=== PATIENT | male | born 1980 | race Two or more races ===

== ENCOUNTER 2023-04-04 08:27 | Inpatient (IN) | payer OTHER ==
[2023-04-05] MEDS ORDERED: IRBESARTAN-HCT1 EACH PO (10:32)
[2023-04-05 10:40] LABS: HEMATOCRIT 42.2 % (39.0-48.0); HEMOGLOBIN 13.8 g/dL (13-16.00); MEAN CELL VOLUME 93.2 fL (80.0-100.00); MEAN CORPUSCULAR HEMOGLOBIN 30.4 pg (27.00-32.0); MEAN CORPUSCULAR HGB CONC 32.7 g/dl (32.0-36.0); PLATELET COUNT 322 K/uL (150-450); RED BLOOD COUNT 4.53 M/uL (4.00-6.00); RED CELL DISTRIBUTION WIDTH 12.8 % (11.5-14.5)
[2023-04-05 11:18] LABS: CALCIUM 9.2 mg/dL (8.5-10.1); CREATININE SERUM 0.79 mg/dL (0.70-1.30); GFR 108.09; POTASSIUM 4.57 mEq/L (3.5-5.1)
[2023-04-05 11:43] LABS: INR 1.01; PARTIAL THROMBOPLASTIN TIME 27.9 SECONDS (22.0-34.0); PROTHROMBIN TIME 10.6 SECONDS (9.0-11.5)
[2023-04-07] MEDS ORDERED: KETO10TA2 PO (14:55)
[2023-04-07] MEDS ORDERED: NEURONTIN300 MG PO (14:55)
[2023-04-07] MEDS ORDERED: TRAMADOL HCL50 MG PO (14:55)
[2023-04-07] MEDS ORDERED: TYLENOL ARTHRI650 MG PO (14:55)
[2023-04-08 06:30] LABS: HEMATOCRIT 39.8 % (39.0-48.0); HEMOGLOBIN 13.1 g/dL (13-16.00); MEAN CORPUSCULAR HEMOGLOBIN 30.7 pg (27.00-32.0); PLATELET COUNT 294 K/uL (150-450); RED BLOOD COUNT 4.28 M/uL (4.00-6.00); RED CELL DISTRIBUTION WIDTH 12.9 % (11.5-14.5)
[2023-04-08 06:56] LABS: ALBUMIN 3.4 gm/dL (3.4-5.0); BILIRUBIN TOTAL 0.86 mg/dL (0.3-1.2); CALCIUM 8.9 mg/dL (8.5-10.1); CREATININE SERUM 0.99 mg/dL (0.70-1.30); GFR 83.3; GLOBULINA 3.2 G/DL (2.4-3.5); POTASSIUM 4.42 mEq/L (3.5-5.1); TOTAL PROTEIN 6.6 gm/dL (6.4-8.2)
== END 2023-04-08 18:09 | disposition home or self-care (01) | DRG 355 ==
LOC: SURH 04-07 08:45 → O/R 04-07 09:26 → SURH 04-07 13:15 → SURG 04-07 16:30
PROVIDERS: Internal Medicine; ADMIT Surgery; ATTEND Surgery
PROC: 0WJF4ZZ Inspection of Abdominal Wall, Percutaneous Endoscopic Approach (ICD-10-PCS; 2023-04-07)
PROC: 0KXL0ZZ Transfer Left Abdomen Muscle, Open Approach (ICD-10-PCS; 2023-04-07)
PROC: 0KXK0ZZ Transfer Right Abdomen Muscle, Open Approach (ICD-10-PCS; 2023-04-07)
PROC: 0HB7XZZ Excision of Abdomen Skin, External Approach (ICD-10-PCS; 2023-04-07)
PROC: 0WUF0JZ Supplement Abdominal Wall with Synthetic Substitute, Open Approach (ICD-10-PCS; principal; 2023-04-07 13:15)
DX: K43.2 Incisional hernia without obstruction or gangrene (principal); Z20.822 Contact with and (suspected) exposure to COVID-19

== ENCOUNTER 2023-04-18 20:51 | Inpatient (IN) | payer OTHER ==
[~2023-04-18] VITALS: Ht 180.3 cm; Wt 113.4 kg
[~2023-04-18 20:51] MED LIST: IRBESARTAN-HCT1 EACH PO; KETO10TA2 PO; NEURONTIN300 MG PO; TRAMADOL HCL50 MG PO; TYLENOL ARTHRI650 MG PO
[2023-04-18 23:10] LABS: ABG pCO2 31.4 mmHg (35-45)
[2023-04-18 23:11] LABS: ABG PO2 57.6 mmHg (80-100); BASE EXCESS 0.3 mmol/l; BICARBONATE 22.9 mmol/l (23-25); SaO2 91.8 %; Tco2 23.8 mmol/l; allen test SATISFACTORY; o2 21 %; puncture site RADIAL RIGHT
[2023-04-18 23:39] LABS: HEMATOCRIT 36.3 % (39.0-48.0); HEMOGLOBIN 12.4 g/dL (13-16.00); MEAN CORPUSCULAR HEMOGLOBIN 30.4 pg (27.00-32.0); MEAN CORPUSCULAR HGB CONC 34.2 g/dl (32.0-36.0); PLATELET COUNT 464 K/uL (150-450); RED BLOOD COUNT 4.08 M/uL (4.00-6.00); RED CELL DISTRIBUTION WIDTH 13.3 % (11.5-14.5)
[2023-04-19 00:19] LABS: INR 1.06; PROTHROMBIN TIME 11.1 SECONDS (9.0-11.5)
[2023-04-19 00:22] LABS: ALBUMIN 3.6 gm/dL (3.4-5.0); BILIRUBIN TOTAL 0.59 mg/dL (0.3-1.2); CALCIUM 9.3 mg/dL (8.5-10.1); CREATININE SERUM 0.9 mg/dL (0.70-1.30); D DIMER 6.4 MG/L; GFR 92.99; GLOBULINA 4.6 G/DL (2.4-3.5); PARTIAL THROMBOPLASTIN TIME 34.1 SECONDS (22.0-34.0); POTASSIUM 3.97 mEq/L (3.5-5.1); TOTAL PROTEIN 8.2 gm/dL (6.4-8.2)
[2023-04-20 07:12] LABS: HEMATOCRIT 37.6 % (39.0-48.0); HEMOGLOBIN 12.6 g/dL (13-16.00); MEAN CELL VOLUME 89.3 fL (80.0-100.00); MEAN CORPUSCULAR HEMOGLOBIN 29.9 pg (27.00-32.0); MEAN CORPUSCULAR HGB CONC 33.5 g/dl (32.0-36.0); PLATELET COUNT 505 K/uL (150-450); RED BLOOD COUNT 4.21 M/uL (4.00-6.00); RED CELL DISTRIBUTION WIDTH 13.2 % (11.5-14.5)
[2023-04-20 07:29] LABS: PARTIAL THROMBOPLASTIN TIME 37.9 SECONDS (22.0-34.0)
[2023-04-20 07:32] LABS: D DIMER 4.31 MG/L
[2023-04-20 07:37] LABS: INR 1.12; PROTHROMBIN TIME 11.7 SECONDS (9.0-11.5)
[2023-04-20 07:41] LABS: ALBUMIN 3.3 gm/dL (3.4-5.0); BILIRUBIN TOTAL 0.52 mg/dL (0.3-1.2); CALCIUM 9.1 mg/dL (8.5-10.1); CHOL HDL RATIO 3.4 (0-5.0); CREATININE SERUM 0.84 mg/dL (0.70-1.30); GFR 100.7; GLOBULINA 4.1 G/DL (2.4-3.5); POTASSIUM 4.83 mEq/L (3.5-5.1); PROSTATIC SPECIFIC ANTIGEN 2.69 NG/ML (0.010-4.00); T4 FREE 1.29 NG/ML (0.76-1.46); TOTAL PROTEIN 7.4 gm/dL (6.4-8.2); TSH 1.87 uIU/mL (0.358-3.74)
[2023-04-20 07:44] LABS: C-REACTIVE PROTEIN 17.1 MG/DL (0.00-0.29)
[2023-04-20 07:45] LABS: ERYTHROCYTE SEDIMENTATION RATE 79 mm/hr
[2023-04-20 08:04] LABS: PH,URINE 5.5 (5.0-8.0); URINE APPEARANCE Turbid; URINE BILIRRUBIN Negative (NEGATIVE); URINE BLOOD Negative; URINE COLOR Yellow; URINE GLUCOSE Negative (NEGATIVE); URINE LEUKOCYTE Negative; URINE NITRATE Negative; URINE PROTEIN Negative (NEGATIVE); URINE UROBILINOGEN 0.2 E.U./dl
[2023-04-20 08:09] LABS: URINE BACTERIA 32.7 uL (0.0-1933)
[2023-04-20 08:55] LABS: URINE WBC 1.3 uL (0.0-23.2)
[2023-04-20 09:59] LABS: ABG PH 7.449 (7.35-7.45); ABG pCO2 35.1 mmHg (35-45); BASE EXCESS 0.3 mmol/l; BICARBONATE 23.8 mmol/l (23-25); SaO2 92.2 %; Tco2 24.8 mmol/l; allen test SATISFACTORY; puncture site RADIAL RIGHT
[2023-04-20 10:00] LABS: o2 21 %
[2023-04-20] MEDS ORDERED: IRBESARTAN300 MG (15:22)
[2023-04-24 11:02] LABS: ABG PH 7.424 (7.35-7.45); ABG PO2 76.3 mmHg (80-100); ABG pCO2 35.3 mmHg (35-45); BASE EXCESS -1.2 mmol/l; BICARBONATE 22.6 mmol/l (23-25); SaO2 95.4 %; Tco2 23.7 mmol/l; allen test SATISFACTORY; o2 21 %; puncture site RADIAL LEFT
[2023-04-25 07:21] LABS: HEMOGLOBIN 12.4 g/dL (13-16.00); MEAN CELL VOLUME 89.7 fL (80.0-100.00); MEAN CORPUSCULAR HEMOGLOBIN 30.2 pg (27.00-32.0); MEAN CORPUSCULAR HGB CONC 33.6 g/dl (32.0-36.0); PLATELET COUNT 648 K/uL (150-450); RED BLOOD COUNT 4.13 M/uL (4.00-6.00); RED CELL DISTRIBUTION WIDTH 13.3 % (11.5-14.5)
[2023-04-25 07:52] LABS: CALCIUM 9.7 mg/dL (8.5-10.1); CREATININE SERUM 0.86 mg/dL (0.70-1.30); PHOSPHOROUS 4.5 mg/dL (2.5-4.9); POTASSIUM 4.42 mEq/L (3.5-5.1)
[2023-04-26] MEDS ORDERED: AVAPRO150 MG PO (14:12)
[2023-04-26] MEDS ORDERED: ELIQUIS5 MG PO (14:12)
== END 2023-04-26 14:47 | disposition home or self-care (01) | DRG 205 ==
LOC: ER 20:51 → MEDJ 04-19 12:22 → SEC-K 04-19 12:22 → MEDJ 04-19 12:52 → SEC-K 04-19 13:26 → MEDJ 04-19 19:06
PROVIDERS: General Practice; Internal Medicine Geriatric Medicine; ADMIT Internal Medicine; ATTEND Internal Medicine
PROC: B24BZZZ Ultrasonography of Heart with Aorta (ICD-10-PCS; principal; 2023-04-19)
PROC: CB121ZZ Planar Nuclear Medicine Imaging of Lungs and Bronchi using Technetium 99m (Tc-99m) (ICD-10-PCS; 2023-04-19)
PROC: 4A12X4Z Monitoring of Cardiac Electrical Activity, External Approach (ICD-10-PCS; 2023-04-19)
PROC: B54DZZZ Ultrasonography of Bilateral Lower Extremity Veins (ICD-10-PCS; 2023-04-20)
PROC: BW24YZZ Computerized Tomography (CT Scan) of Chest and Abdomen using Other Contrast (ICD-10-PCS; 2023-04-21)
DX: J95.89 Other postprocedural complications and disorders of respiratory system, not elsewhere classified (principal); I26.99 Other pulmonary embolism without acute cor pulmonale; J18.9 Pneumonia, unspecified organism; I82.442 Acute embolism and thrombosis of left tibial vein; I10 Essential (primary) hypertension; G47.33 Obstructive sleep apnea (adult) (pediatric); Z20.822 Contact with and (suspected) exposure to COVID-19; I87.2 Venous insufficiency (chronic) (peripheral)